=== PATIENT | female | born 1955 ===

== ENCOUNTER 2019-06-12 12:45 | Day surgery (SDC) | payer OTHER ==
[~2019-06-12] VITALS: Ht 157.5 cm; Wt 45.6 kg
[2019-06-12] MEDS ORDERED: OMEPRAZOLE20 MG (13:45)
--- NOTE | 2019-06-12 13:55 | NUR ---
06/12/19 1355 Lianna Arellano 2 IV MISS IN RFA AND RAC BY BRAD VALVE 1 GOOD IV IN RFA BY BRAD PT TOW
== END 2019-06-20 23:01 | disposition home or self-care (01) ==
LOC: ORSCSDS 12:45
PROVIDERS: Internal Medicine Gastroenterology
PROC: 0DB98ZX Excision of Duodenum, Via Natural or Artificial Opening Endoscopic, Diagnostic (ICD-10-PCS; principal; 2019-06-12 14:00)
PROC: 0DBH8ZX Excision of Cecum, Via Natural or Artificial Opening Endoscopic, Diagnostic (ICD-10-PCS; principal; 2019-06-12 14:00)
PROC: 0DB68ZX Excision of Stomach, Via Natural or Artificial Opening Endoscopic, Diagnostic (ICD-10-PCS; principal; 2019-06-12 14:00)
DX: R10.13 Epigastric pain (principal); K44.9 Diaphragmatic hernia without obstruction or gangrene; K20.9 Esophagitis, unspecified; D37.4 Neoplasm of uncertain behavior of colon; K57.30 Diverticulosis of large intestine without perforation or abscess without bleeding; K64.8 Other hemorrhoids; Z12.11 Encounter for screening for malignant neoplasm of colon; Z87.891 Personal history of nicotine dependence; Z79.899 Other long term (current) drug therapy
CPT/HCPCS: 88305; 88342; J2704; J7120